=== PATIENT | female | born 1930 | race Caucasian/White ===

== ENCOUNTER 2017-01-12 15:02 | Inpatient (IN) | payer MEDICARE, BC ==
--- NOTE | 2017-01-12 16:29 | ER Document Report ---
ED Fall - General Chief Complaint: Fall Injury Stated Complaint: LEG PAIN FALL Time Seen by Provider: 01/12/17 15:58 Mode of Arrival: Medic Information source: Patient, Emergency Med Personnel Notes: This is an 86-year-old female with a history of coronary artery disease (stents in the past, no HI), hypertension, dyslipidemia who is brought in by EMS with left hip pain after fall this morning. Patient states she was up on a stool trying to fix a light when she tripped over and fell. She denies hitting her head. She denies any pain around the head area. She denies loss of consciousness. She denies any abdominal pain or back pain. She does have bruises to the left upper arm and left hip. Medicines: Amlodipine 10 mg daily Metoprolol 50 mg twice a day Plavix 75 milligrams daily Isosorbide ER 60 mg twice a day Simvastatin 20 mg daily No known drug allergies [facility] physician: Sayra Belcher (new physician in office) TRAVEL OUTSIDE OF THE [place] IN LAST 30 DAYS: No - HPI Occurred: This morning Where: Home Context: Lost balance Associated symptoms: Difficulty walking. denies: Lost consciousness, Dazed/ confused, Seizure, Difficulty breathing, Became dizzy/fainted Location of injury/pain: Hip Quality of pain: Dull Severity: Moderate Pain Level: 3 - Related data Allergies/Adverse Reactions: No Known Allergies Allergy (Verified 01/12/17 15:23) Past Medical History - General Information source: Patient, Relative - Social History Smoking Status: Never Smoker Cigarette use (# per day): No Chew tobacco use (# tins/day): No Frequency of alcohol use: None Drug Abuse: None Lives with: Spouse/Significant other Family History: Reviewed & Not Pertinent Patient has suicidal ideation: No Patient has homicidal ideation: No - Past Medical History Cardiac Medical History: Reports: Hx Coronary Artery Disease, Hx Heart Attack, Hx Hypercholesterolemia, Hx Hypertension Pulmonary Medical History: Denies: Hx Asthma, Hx Tuberculosis Neurological Medical History: Denies: Hx Cerebrovascular Accident, Hx Seizures GI Medical History: Denies: Hx Hepatitis, Hx Hiatal Hernia, Hx Ulcer Psychiatric Medical History: Denies: Hx Depression Infectious Medical History: Denies: Hx Hepatitis Past Surgical History: Reports: Hx Cardiac Surgery - 5 stents, 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 Denies: Hx Mastectomy, Hx Open Heart Surgery - STENTS PLACED - Immunizations Hx Diphtheria, Pertussis, Tetanus Vaccination: Yes Hx Pneumococcal Vaccination: 06/03/13 Review of Systems - Review of Systems Constitutional: denies: Chills, Fever EENT: No symptoms reported Cardiovascular: No symptoms reported Respiratory: No symptoms reported Gastrointestinal: No symptoms reported Genitourinary: No symptoms reported Female Genitourinary: No symptoms reported Musculoskeletal: See HPI Skin: No symptoms reported Hematologic/Lymphatic: No symptoms reported Neurological/Psychological: No symptoms reported Physical Exam - Vital signs Vitals: Pulse Ox 95 01/12/17 15:03 Notes: Physical exam: GENERAL: 86-year-old female, alert and oriented 3, no acute distress laying flat. She does have pain with attempted movement of the left hip. HEAD: Atraumatic, normocephalic. Patient has no tenderness about the head. Cervical spine: Nontender to palpation EYES: Pupils equal round and reactive to light, extraocular movements intact, sclera anicteric, conjunctiva are normal. ENT: TMs normal, nares patent, oropharynx clear without exudates. Moist mucous membranes. NECK: Normal range of motion, supple without lymphadenopathy or JVD. LUNGS: Breath sounds clear to auscultation bilaterally and equal. No wheezes rales or rhonchi. HEART: Regular rate and rhythm without murmurs, rubs or gallops. ABDOMEN: Soft, normoactive bowel sounds. No tenderness to palpation. No guarding, no rebound. No masses appreciated. EXTREMITIES: Normal range of motion of the right hip. 2+ pulses on the right. Good cap refill. Left lower extremity is shortened compared to the right. Limited range of motion due to pain. Distal pulses in the foot are 2+. Patient is moving the toes and has good cap refill. Patient does have a contusion over the left hip area laterally. Right upper extremity: There is a small pressure contusion over the olecranon. His full range of motion at the elbow and shoulder without pain. Left upper extremity has a contusion over the proximal humerus laterally. This full range of motion of the left shoulder and left elbow. NEUROLOGICAL: Cranial nerves II through XII grossly intact. Normal speech, normal gait. PSYCH: Normal mood, normal affect. SKIN: Warm, Dry, normal turgor, no rashes or lesions noted. Course - Re-evaluation Re-evalutation: 01/12/17 23:47 Note: I discussed case with Dr. Javier who will see patient in consult. He has been a no notified that the patient has a left intertrochanteric fracture. He has requested that I contact the anesthesiologist (Dr burrows). I did contact Dr. Momin of anesthesiology and presented the case to her. She did recommend a preop echo. I discussed the case with the hospitalist (Dr. Lepe) and I did report to him the request by the anesthesiologist for a preop echo. Patient's labs are otherwise okay and she is admitted to the hospitalist service. - Vital Signs Vital signs: Temp Pulse Resp BP Pulse Ox 97.4 F 78 18 137/66 H 100 01/12/17 20:20 01/12/17 20:20 01/12/17 20:20 01/12/17 20:20 01/12/17 20:20 - Laboratory Result Diagrams: 01/12/17 16:41 01/12/17 16:41 Laboratory results interpreted by me: 01/12/17 01/12/17 01/12/17 16:11 16:41 16:41 WBC 11.6 H RBC 3.71 L Hgb 11.6 L Hct 34.8 L Seg Neutrophils % 85.9 H Lymphocytes % 9.9 L Absolute Neutrophils 10.0 H BUN 27 H Glucose 177 H Urine Glucose (UA) 50 H Urine Ascorbic Acid 40 H - Diagnostic Test Radiology reviewed: Image reviewed, Reports reviewed - Hip x-ray shows left intertrochanteric fracture - EKG Interpretation by Me Rate: Normal Rhythm: NSR - EKG shows normal sinus rhythm with a ventricular rate of 74. Patient does have a left bundle branch block which is old. No significant change from prior EKG in 02/04/2014 Critical Care Note - Critical Care Note Total time excluding time spent on procedures (mins): 60 Discharge - Discharge Clinical Impression: left hip fracture Condition: Stable Disposition: ADMITTED INPATIENT Admitting Provider: Hospitalist - Dr Lepe
[2017-01-12 16:58] LABS: ABSOLUTE LYMPHOCYTES (AUTO) 1.2 10^3/uL (0.5-4.7); ABSOLUTE MONOCYTES (AUTO) 0.5 10^3/uL (0.1-1.4); BASOPHILS % (AUTO) 0.2 % (0-2); EOSINOPHILS % (AUTO) 0.1 % (0-6); HEMATOCRIT 34.8 % (36.0-47.0); HEMOGLOBIN 11.6 g/dL (12.0-15.5); LYMPHOCYTES % (AUTO) 9.9 % (13-45); MEAN CORPUSCULAR HEMOGLOBIN 31.3 pg (27.0-33.4); MEAN CORPUSCULAR HGB CONC 33.3 g/dL (32.0-36.0); MEAN CORPUSCULAR VOLUME 94 fl (80-97); MONOCYTES % (AUTO) 3.9 % (3-13); RED BLOOD COUNT 3.71 10^6/uL (3.72-5.28); RED CELL DISTRIBUTION WIDTH 12.7 % (11.5-14.0); SEGMENTED NEUTROPHILS % (AUTO) 85.9 % (42-78); WHITE BLOOD COUNT 11.6 10^3/uL (4.0-10.5)
[2017-01-12 17:16] LABS: ALANINE AMINOTRANSFERASE 28 U/L (9-52); ALBUMIN 3.7 g/dL (3.5-5.0); ALKALINE PHOSPHATASE 70 U/L (38-126); ANION GAP 8 (5-19); ASPARTATE AMINO TRANSFERASE 28 U/L (14-36); BILIRUBIN,DIRECT 0.3 mg/dL (0.0-0.4); BILIRUBIN,TOTAL 0.8 mg/dL (0.2-1.3); BLOOD UREA NITROGEN 27 mg/dL (7-20); CALCIUM 9.4 mg/dL (8.4-10.2); CARBON DIOXIDE 30 mmol/L (22-30); CHLORIDE 99 mmol/L (98-107); CREATINE KINASE 42 U/L (30-135); CREATININE RESULT 0.84 mg/dL (0.52-1.25); GLUCOSE 177 mg/dL (75-110); SODIUM 137.2 mmol/L (137-145); TOTAL PROTEIN 7.4 g/dL (6.3-8.2)
[2017-01-12 17:19] LABS: APPEARANCE,URINE SLIGHTLY-CLOUDY; BILIRUBIN,URINE NEGATIVE (NEGATIVE); GLUCOSE, URINE 50 mg/dL (NEGATIVE); KETONES,URINE NEGATIVE (NEGATIVE); LEUKOCYTE ESTERASE,URINE NEGATIVE (NEGATIVE); NITRITE,URINE NEGATIVE (NEGATIVE); PROTEIN,URINE NEGATIVE (NEGATIVE); URINE SPECIFIC GRAVITY 1.014; UROBILINOGEN,URINE NEGATIVE mg/dL (<2.0)
[2017-01-12] MEDS ORDERED: OXYCODONE-ACETAMINOPHEN 5-325 MG TABLET PO PRN (18:09)
[2017-01-12 18:42] LABS: PROTHROMBIN TIME 13.4 SEC (11.4-15.4)
--- NOTE | 2017-01-12 19:18 | PDOC H&P ---
History of Present Illness Admission Date/PCP: 01/12/17 18:40 Patient complains of: Fall and hip pain History of Present Illness: JOSAFAT ARREGUIN is a 86 year old female, with hypertension and coronary artery disease and hyperlipidemia brought to the emergency room after a fall with subsequent hip pain on the left. Patient apparently was trying to reach and turn on a ceiling fan switch, while trying to independent living specialist the floor stool, patient felt lightheaded and fell on the floor but no reported syncope. Patient unable to get up and having pain on the left hip therefore the patient was brought to the hospital for evaluation. Patient is sedated and was given morphine and unable to give much information but able to answer very few questions. Family at bedside who provided more of the information. Prior to the fall, there was no reported discomfort, pain, shortness of breath, chills or fever. Patient is ambulatory, still able to do some housework. Patient is independent as reported. In the emergency room, x-ray of the hip shows fracture, orthopedics was consulted, anesthesia service likewise was called requesting echocardiogram , patient was referred to hospitalist for admission. 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 Denies: Amputation, Mastectomy Social History Information Source: Relative Smoking Status: Never Smoker Frequency of Alcohol Use: None Hx Recreational Drug Use: No Drugs: None Hx Prescription Drug Abuse: No Family History Family History: CVA, Other - Heart disease Parental Family History Reviewed: Yes Children Family History Reviewed: Yes Sibling(s) Family History Reviewed.: Yes Medication/Allergy Home Medications: Amlodipine Besylate 10 mg PO DAILY 12/18/12 Aspirin [Ecotrin 81 mg EC Tablet] 325 mg PO DAILY 12/18/12 Clopidogrel Bisulfate [Plavix 75 mg Tablet] 75 mg PO DAILY 12/18/12 Isosorbide Mononitrate [Isosorbide Mononitrate ER] 60 mg PO DAILY 12/18/12 Metoprolol Succinate [Toprol Xl 50 mg Tab.sr] 50 mg PO BID 12/18/12 Simvastatin 20 mg PO DAILY 12/18/12 Calcium Carbonate [Calcium] 600 mg PO DAILY 02/04/14 Multivitamin [Multi-Vitamin Daily] 1 each PO DAILY 02/04/14 Allergies/Adverse Reactions: No Known Allergies Allergy (Verified 01/12/17 15:23) Review of Systems ROS unobtainable: Due to mental status - Family at bedside provided the information as stated in the history. Physical Exam Vital Signs: Temp Pulse Resp BP Pulse Ox 97.9 F 74 20 146/70 H 98 01/12/17 15:05 01/12/17 15:05 01/12/17 18:01 01/12/17 18:01 01/12/17 18:01 General appearance: PRESENT: no acute distress, thin, other - Sedated but arousable Head exam: PRESENT: normocephalic Eye exam: PRESENT: EOMI, PERRLA - But sluggish with opacification of both lens Ear exam: PRESENT: normal external ear exam. ABSENT: drainage Mouth exam: PRESENT: moist, neck supple, tongue midline Neck exam: ABSENT: carotid bruit, JVD, lymphadenopathy, thyromegaly Respiratory exam: PRESENT: clear to auscultation win - Poor effort however. ABSENT: rales, rhonchi, wheezes Cardiovascular exam: PRESENT: RRR, +S1, +S2. ABSENT: rubs Pulses: PRESENT: normal dorsalis pedis pul Vascular exam: PRESENT: normal capillary refill GI/Abdominal exam: PRESENT: normal bowel sounds, soft. ABSENT: distended, guarding, mass, organolmegaly, rebound, tenderness Rectal exam: PRESENT: deferred Extremities exam: ABSENT: calf tenderness, clubbing, pedal edema Neurological exam: PRESENT: altered - Patient unable to follow at this time due to sedation from morphine Skin exam: PRESENT: dry, warm. ABSENT: cyanosis, rash Results Impressions: Hip X-Ray 01/12/17 00:00 IMPRESSION: Intertrochanteric fracture of the left hip. Chest X-Ray 01/12/17 15:45 IMPRESSION: COPD. NO ACUTE RADIOGRAPHIC FINDING IN THE CHEST. Head CT 01/12/17 16:14 IMPRESSION: NO ACUTE INTRACRANIAL PROCESS. NO SIGNIFICANT CHANGE FROM PRIOR STUDY. Assessment & Plan - Diagnosis (1) Hip fracture Qualifiers: Encounter type: initial encounter Fracture type: closed Laterality : left Qualified Code(s): S72.002A - Fracture of unspecified part of neck of left femur, initial encounter for closed fracture Is this a current diagnosis for this admission?: Yes (2) Hyperglycemia Is this a current diagnosis for this admission?: Yes (3) Essential hypertension Is this a current diagnosis for this admission?: Yes (4) Coronary arteriosclerosis Is this a current diagnosis for this admission?: Yes (5) Hyperlipidemia Qualifiers: Hyperlipidemia type: unspecified Qualified Code(s): E78.5 - Hyperlipidemia, unspecified Is this a current diagnosis for this admission?: Yes - Time Time Spent: 30 to 50 Minutes - Inpatient Certification Based on my medical assessment, after consideration of the patient's comorbidities, presenting symptoms, or acuity I expect that the services needed warrant INPATIENT care.: Yes I certify that my determination is in accordance with my understanding of Medicare's requirements for reasonable and necessary INPATIENT services [42 CFR 412.3e].: Yes Medical Necessity: Significant Comorbidiites Make Outpatient Treatment Too Risky , Need For IV Fluids, Need for Pain Control, Need for Surgery, Risk of Diagnosis Which Will Require Inpatient Eval/Care/Monitoring Post Hospital Care: D/C Document Management Analyst Documentation - Plan Summary Plan Summary: We are going to consult orthopedics. We are going to request for a preoperative echocardiogram as per anesthesia service reported. I am going to give IV analgesics for pain relief. I will check hemoglobin A1c, gently hydrate the patient. DVT prophylaxis with Lovenox will be placed. Further testing depends and the initial evaluation as outlined above.
[2017-01-12] MEDS ORDERED: ENOXAPARIN SODIUM INJ 30 MG/0.3 ML DISP.SYRIN SUBCUT ONE (19:30)
--- NOTE | 2017-01-12 21:39 | XCELERA REPORT ---
[address] [address] Transthoracic Echocardiogram Report Name: JOSAFAT ARREGUIN Age: 86 yrs Gender: Female : 1930 Patient Status: Emergency Patient Location: [id number] Study Date: 01/12/2017 07:30 PM Height: 60 in Weight: 85 lb BSA: 1.3 m2 Procedure: A two-dimensional transthoracic echocardiogram with color flow and Doppler was performed. Study Quality: Fair. Reason For Study: pre-operative, CAD, HTN History: pre-operative, CAD, HTN. Ordering Physician: NNAMDI GROSSMAN Performed By: Silvia Mayo Interpretation Summary The left ventricle is normal in size. There is normal left ventricular wall thickness. LV EF is 65% Left ventricular systolic function is normal. Doppler measurements suggest impaired left ventricular relaxation, which is associated with grade I/IV or mild diastolic dysfunction The left ventricular wall motion is normal. There is no thrombus. The right ventricle is normal in size and function. The left atrial size is normal. There is no evidence of mitral valve prolapse. There is no vegetation seen on the mitral valve. There is no mitral valve stenosis. There is a mild amount of mitral regurgitation The aortic valve is mildly calcified There is no aortic valve stenosis There is no LVOT obstruction. No aortic regurgitation is present. There is no tricuspid stenosis. There is a mild amount of tricuspid regurgitation There is mild pulmonary hypertension by echo RVSP is 39 to 44 mm of Hg , with RA mean of 5 to 10. There is no pericardial effusion. MMode/2D Measurements \T\ Calculations RVDd: 1.8 cm LVIDd: 4.1 cm FS: 43.0 % Ao root diam: 2.1 cm IVSd: 0.97 cm LVIDs: 2.3 cm EDV(Teich): 74.0 ml LVPWd: 0.89 cm ESV(Teich): 18.8 ml Ao root area: 3.5 cm2 EF(Teich): 74.5 % LA dimension: 2.9 cm Doppler Measurements \T\ Calculations MV E max meena: MV P1/2t max meena: Ao V2 max: LV V1 max P.3 cm/sec 91.8 cm/sec 135.5 cm/sec 6.3 mmHg MV A max meena: MV P1/2t: 68.8 msec Ao max PG: LV V1 max: 123.9 cm/sec 7.3 mmHg 125.9 cm/sec MV E/A: 0.74 MVA(P1/2t): 3.2 cm2 MV dec slope: 390.8 cm/sec2 MV dec time: 0.22 sec PA V2 max: TR max meena: 76.0 cm/sec 293.2 cm/sec PA max P.3 mmHgTR max P.4 mmHg Left Ventricle The left ventricle is normal in size. There is normal left ventricular wall thickness. LV EF is 65%. Left ventricular systolic function is normal. Doppler measurements suggest impaired left ventricular relaxation, which is associated with grade I/IV or mild diastolic dysfunction. The left ventricular wall motion is normal. There is no thrombus. There is no ventricular septal defect visualized. Right Ventricle The right ventricle is normal in size and function. Atria The right atrium is normal. The left atrial size is normal. The interatrial septum is intact with no evidence for an atrial septal defect. Mitral Valve There is moderate mitral annular calcification. There is no evidence of mitral valve prolapse. There is no vegetation seen on the mitral valve. There is no mitral valve stenosis. There is a mild amount of mitral regurgitation. Aortic Valve The aortic valve is trileaflet. The aortic valve opens well. The aortic valve is mildly calcified. There is no aortic valvular vegetation. There is no aortic valve stenosis. There is no LVOT obstruction. No aortic regurgitation is present. Tricuspid Valve There is no tricuspid stenosis. There is a mild amount of tricuspid regurgitation. There is mild pulmonary hypertension by echo. RVSP is 39 to 44 mm of Hg , with RA mean of 5 to 10. Pulmonic Valve There is no pulmonic valvular stenosis. There is no pulmonic valvular regurgitation. Great Vessels The aortic root is normal size. Effusions There is no pericardial effusion. : NNAMDI GROSSMAN > Yessenia Pablo
[2017-01-12] MEDS: NORMAL SALINE 1000 ML 1,000 ML IV PRN (21:45)
[2017-01-12] MEDS: SIMVASTATIN 10 MG TABLET PO SCH (21:51)
[2017-01-12] MEDS: METOPROLOL SUCCINATE 50 MG TAB.SR.24H PO SCH (21:51)
[2017-01-13] MEDS: NORMAL SALINE 1000 ML 1,000 ML IV PRN (03:06)
[2017-01-13 04:58] LABS: ANION GAP 9 (5-19); BLOOD UREA NITROGEN 20 mg/dL (7-20); CALCIUM 9.6 mg/dL (8.4-10.2); CARBON DIOXIDE 28 mmol/L (22-30); CHLORIDE 102 mmol/L (98-107); CREATININE RESULT 0.66 mg/dL (0.52-1.25); GLUCOSE 125 mg/dL (75-110); POTASSIUM 4.2 mmol/L (3.6-5.0); SODIUM 138.8 mmol/L (137-145)
[2017-01-13] MEDS: LANSOPRAZOLE 30 MG TAB.RAP.DR PO SCH (05:44)
[2017-01-13] MEDS: ACETAMINOPHEN 325 MG TABLET PO PRN (06:46)
[2017-01-13] MEDS ORDERED: ENOXAPARIN SODIUM INJ 40 MG/0.4 ML DISP.SYRIN SUBCUT SCH (08:00)
[2017-01-13] MEDS ORDERED: ASPIRIN 81 MG TABLET, ENT COATED PO SCH (10:00)
[2017-01-13] MEDS ORDERED: AMLODIPINE BESYLATE 5 MG TABLET PO SCH (10:00)
[2017-01-13] MEDS ORDERED: (PENDING PHARMACY ID) (Simvastatin [Simvastatin] 20 MG) PO SCH (10:00)
[2017-01-13] MEDS ORDERED: ISOSORBIDE MONONITRATE 30 MG TAB.ER.24H PO SCH (10:00)
[2017-01-13] MEDS ORDERED: METOPROLOL SUCCINATE 50 MG TAB.SR.24H PO SCH (10:00)
[2017-01-13] MEDS ORDERED: (PENDING PHARMACY ID) (Calcium Carbonate [Calcium] 600 MG) PO SCH (10:00)
--- NOTE | 2017-01-13 11:35 | PDOC PROGRESS REPORT ---
Subjective Progress Note for:: 01/13/17 Subjective:: More awake and alert and responsive. He did report and remembered the fall prior to the fracture. Patient felt a little dizzy when trying to get up from the floor to the stool to reach for a ceiling fan/light switch. Denies chest pain or shortness of breath. No PND or orthopnea. No chills or fever. No diarrhea. No dysuria urgency or frequency. Physical Exam Vital Signs: Temp Pulse Resp BP Pulse Ox 98 F 75 12 145/70 H 98 01/13/17 09:34 01/13/17 09:34 01/13/17 09:34 01/13/17 09:34 01/13/17 09:34 Intake & Output 01/12/17 01/13/17 01/14/17 06:59 06:59 06:59 Intake Total 1320 Output Total 1270 Balance 50 Weight 37.3 kg General appearance: PRESENT: no acute distress, cooperative Head exam: PRESENT: normocephalic Eye exam: PRESENT: EOMI Mouth exam: PRESENT: moist, neck supple Respiratory exam: PRESENT: clear to auscultation win. ABSENT: rhonchi, wheezes Cardiovascular exam: PRESENT: RRR. ABSENT: gallop GI/Abdominal exam: PRESENT: soft. ABSENT: distended, tenderness Extremities exam: PRESENT: pedal edema - Mild edema pretibial Neurological exam: PRESENT: alert, awake, oriented to situation Skin exam: PRESENT: dry, warm. ABSENT: cyanosis Results Laboratory Results: 01/13/17 04:11 01/13/17 04:11 Sodium 138.8 Potassium 4.2 Chloride 102 Carbon Dioxide 28 Anion Gap 9 BUN 20 Creatinine 0.66 Est GFR ( Amer) > 60 Est GFR (Non-Af Amer) > 60 Glucose 125 H Calcium 9.6 Impressions: Hip X-Ray 01/12/17 00:00 IMPRESSION: Intertrochanteric fracture of the left hip. Chest X-Ray 01/12/17 15:45 IMPRESSION: COPD. NO ACUTE RADIOGRAPHIC FINDING IN THE CHEST. Head CT 01/12/17 16:14 IMPRESSION: NO ACUTE INTRACRANIAL PROCESS. NO SIGNIFICANT CHANGE FROM PRIOR STUDY. Assessment & Plan - Diagnosis (1) Hip fracture Qualifiers: Encounter type: initial encounter Fracture type: closed Laterality : left Qualified Code(s): S72.002A - Fracture of unspecified part of neck of left femur, initial encounter for closed fracture Is this a current diagnosis for this admission?: Yes (2) Hyperglycemia Is this a current diagnosis for this admission?: Yes (3) Essential hypertension Is this a current diagnosis for this admission?: Yes (4) Coronary arteriosclerosis Is this a current diagnosis for this admission?: Yes (5) Hyperlipidemia Qualifiers: Hyperlipidemia type: unspecified Qualified Code(s): E78.5 - Hyperlipidemia, unspecified Is this a current diagnosis for this admission?: Yes - Time Time Spent with patient: 15-24 minutes - Plan Summary Plan Summary: Continue current medications and supportive care. Awaiting hip surgery. Plan for subacute rehabilitation post surgery. 2-D echocardiogram showed normal ejection fraction with no significant valvular defect.
[2017-01-13] MEDS ORDERED: FENTANYL CITRATE INJ/PF 100 MCG/2 ML AMPUL ONE (12:11)
[2017-01-13] MEDS ORDERED: MIDAZOLAM 2 MG/2 ML INJ ONE (12:12)
[2017-01-13] MEDS ORDERED: MORPHINE SULFATE 10 MG/ML INJ ONE (12:12)
[2017-01-13] MEDS ORDERED: IBUPROFEN INJ 800 MG/8 ML VIAL IV ONE (12:12)
[2017-01-13] MEDS ORDERED: PROPOFOL INJ 200 MG/20 ML VIAL IV ONE (12:12)
[2017-01-13] MEDS ORDERED: BUPIVACAINE HCL 0.25 % INJ/PF (2.5 MG/1 ML) 30 ML VIAL ONE (12:23)
[2017-01-13] MEDS ORDERED: CEFAZOLIN INJ 1 GM VIAL ONE (12:35)
[2017-01-13] MEDS ORDERED: BUPIVACAINE HCL 0.25 % INJ/PF (2.5 MG/1 ML) 30 ML VIAL INJ ONE ×2 (12:58)
[2017-01-13] MEDS ORDERED: DIPHENHYDRAMINE HCL 50 MG/ML VIAL IV PRN (13:04)
[2017-01-13] MEDS ORDERED: MORPHINE SULFATE 10 MG/ML INJ IV PRN (13:04)
[2017-01-13] MEDS ORDERED: MEPERIDINE HCL/PF INJ 25 MG/1 ML DISP.SYRIN IV PRN (13:04)
[2017-01-13] MEDS ORDERED: FENTANYL CITRATE INJ/PF 100 MCG/2 ML AMPUL IV PRN ×3 (13:04)
[2017-01-13] MEDS ORDERED: PROMETHAZINE HCL INJ 25 MG/1 ML VIAL IV PRN ×2 (13:04)
--- NOTE | 2017-01-13 13:04 | EKG REPORT ---
SEVERITY:- ABNORMAL ECG - SINUS RHYTHM LEFT BUNDLE BRANCH BLOCK : Confirmed by: Oscar Syed 13-Jan-2017 13:04:00
[2017-01-13] MEDS: FLUMAZENIL INJ 0.5 MG/5 ML VIAL IV ONE ×2 (13:55→14:00)
[2017-01-13] MEDS ORDERED: RINGERS SOLUTION,LACTATED 1,000 ML IV PRN (14:54)
--- NOTE | 2017-01-13 15:56 | Operative Report ---
Operative Report DATE OF SURGERY: 01/13/17 PREOPERATIVE DIAGNOSIS: Left intertrochanteric hip fracture POSTOPERATIVE DIAGNOSIS: Same OPERATION: Cephalo-medullary nailing left intertrochanteric hip fracture SURGEON: RUBEN CASTLE ANESTHESIA: LMAC TISSUE REMOVED OR ALTERED: None COMPLICATIONS: None ESTIMATED BLOOD LOSS: 50 mL INTRAOPERATIVE FINDINGS: As above PROCEDURE: Patient was seen and evaluated in the preoperative holding area. The left lower extremity was initialized and marked. Patient received 1 g Ancef IV for bacterial prophylaxis. Patient was taken back to the operative room where transferred operative table. Patient was placed under spinal anesthesia. Once adequate anesthetized he was carefully placed onto the hip positioner the nonoperative lower extremity and bilateral upper extremities were carefully padded and the peroneal nerve was padded and on the nonoperative extremity. The operative extremity was placed in a traction along with adduction and internal rotation. A surgical team debriefing was performed ensuring all instrumentation was available, the surgical procedure was discussed with possible concerns reviewed. A timeout was done identifying correct patient, procedure and extremity everyone in attendance agree with this and verbalized no concerns. Reduction maneuver with the use of the hip traction table were done and C-arm fluoroscopy was used to confirm optimal reduction of the intertrochanteric fracture. Once this was confirmed the lower extremity was prepped with chlor prep and draped in a sterile fashion. At this point a small skin incision was made proximal to the greater trochanter. The guidewire was placed onto the tip of the trochanter advanced down to the level of the lesser trochanter. AP and lateral fluoroscopy was used to confirm appropriate placement of the guidewire. The skin incision was then extended and the underlying fascia opened up carefully to the tip of the greater trochanter. The entry reamer was then used and advanced to the level of the lesser trochanter. At this point Darrel short gamma nail was opened up and placed onto the aiming arm and advanced down the shaft of the femur. AP and lateral fluoroscopy was then used to confirm appropriate placement of the nail. Of note I required using a 12 mm flexible reamer to ream the shaft for fitting of the nail. Once I did this step I was able then to place it in the appropriate position. Then turned my attention to the compression screw fixation in the femoral head. The trochars were advanced to the skin, a skin incision was made, careful dissection down to the fascia to the lateral femoral cortex was then partaken. The guidewire was then used and placed in the center center position with the tip apex distance less than 25 mm. Once this position was obtained the size of the compression screw was measured. AP and lateral fluoroscopy used to confirm appropriate placement of our guide wire. The step reamer was used to drill up through the femoral neck and head. I then carefully advanced the compression screw into position. AP and lateral fluoroscopy was done to confirm appropriate placement of the compression screw this was then locked into position proximally. The compression screw was then disengaged from its mounting device and the guidewire was removed. Lastly proceeded with locking of the nail distally. Using the aiming arm the trochars were advanced to the skin, a skin incision was made. Careful dissection done with a hemostat to the lateral cortex of the femur. I then drilled the near and far cortices. Measured the appropriate sized distal locking screw and secured it into position. At this point AP/lateral and oblique views of the proximal and distal aspect of the nail were taken confirming appropriate placement of the compression screw, distal locking screw and intramedullary nail. Once this was confirmed I proceeded with copious irrigation of the proximal and distal wounds. The deep tissues were closed with 0 Vicryl suture, subcutaneous tissues were closed with 3-0 Monocryl suture. The skin was closed a running 3-0 subcuticular Monocryl suture and reinforced with Dermabond & Steri-Strips. A dressing was placed. Sponge counts, instrument counts and needle counts were correct. Patient was then transferred from the operating room table to the operating room stretcher. The was no intraoperative complications patient tolerated procedure well was stable to PACU. Implants used: [place] 11 x 180 mm 130 Short Gamma Nail with a 95 mm compression screw Postoperative plan: Patient will begin physical therapy on postop day #1 with Xarelto daily.
[2017-01-13] MEDS: METOPROLOL SUCCINATE 50 MG TAB.SR.24H PO SCH ×2 (16:55→22:10)
[2017-01-13] MEDS: ENOXAPARIN SODIUM INJ 30 MG/0.3 ML DISP.SYRIN SUBCUT SCH (16:55)
[2017-01-13] MEDS: AMLODIPINE BESYLATE 10 MG TABLET PO SCH (16:56)
[2017-01-13] MEDS: ISOSORBIDE MONONITRATE 60 MG TAB.ER.24H PO SCH (17:17)
[2017-01-13] MEDS: CALCIUM CARBONATE 500 MG TABLET PO SCH (17:18)
[2017-01-13] MEDS: CLOPIDOGREL BISULFATE 75 MG TABLET PO SCH (17:18)
[2017-01-13] MEDS: ASPIRIN 325 MG TABLET, ENT COATED PO SCH (17:18)
[2017-01-13] MEDS ORDERED: NORMAL SALINE 500 ML IV ONE (19:45)
[2017-01-13] MEDS: SIMVASTATIN 10 MG TABLET PO SCH (21:52)
[2017-01-13] MEDS: CEFAZOLIN 1 GM/D5W RTU 1 GM/50 ML RTUPB IV SCH (21:52)
[2017-01-14 04:52] LABS: ABSOLUTE LYMPHOCYTES (AUTO) 1.7 10^3/uL (0.5-4.7); ABSOLUTE MONOCYTES (AUTO) 0.7 10^3/uL (0.1-1.4); ABSOLUTE NEUT (AUTO) 8.7 10^3/uL (1.7-8.2); BASOPHILS % (AUTO) 0.2 % (0-2); EOSINOPHILS % (AUTO) 0.2 % (0-6); HEMATOCRIT 21.2 % (36.0-47.0); LYMPHOCYTES % (AUTO) 15.6 % (13-45); MEAN CORPUSCULAR HEMOGLOBIN 32.9 pg (27.0-33.4); MEAN CORPUSCULAR HGB CONC 34.8 g/dL (32.0-36.0); MEAN CORPUSCULAR VOLUME 94 fl (80-97); MONOCYTES % (AUTO) 5.9 % (3-13); RED BLOOD COUNT 2.24 10^6/uL (3.72-5.28); RED CELL DISTRIBUTION WIDTH 12.5 % (11.5-14.0); SEGMENTED NEUTROPHILS % (AUTO) 78.1 % (42-78); WHITE BLOOD COUNT 11.1 10^3/uL (4.0-10.5)
[2017-01-14 05:06] LABS: HEMOGLOBIN 7.4 g/dL (12.0-15.5)
[2017-01-14 05:16] LABS: ANION GAP 6 (5-19); BLOOD UREA NITROGEN 25 mg/dL (7-20); CARBON DIOXIDE 25 mmol/L (22-30); CHLORIDE 102 mmol/L (98-107); CREATININE RESULT 0.83 mg/dL (0.52-1.25); GLUCOSE 150 mg/dL (75-110); POTASSIUM 3.8 mmol/L (3.6-5.0)
[2017-01-14] MEDS: CEFAZOLIN 1 GM/D5W RTU 1 GM/50 ML RTUPB IV SCH (06:06)
[2017-01-14] MEDS: LANSOPRAZOLE 30 MG TAB.RAP.DR PO SCH (06:06)
[2017-01-14] MEDS: ACETAMINOPHEN 325 MG TABLET PO PRN ×2 (06:41→18:29)
[2017-01-14] MEDS: ENOXAPARIN SODIUM INJ 30 MG/0.3 ML DISP.SYRIN SUBCUT SCH (08:17)
[2017-01-14] MEDS: ONDANSETRON HCL INJ/PF 4 MG/2 ML SDV IV PRN ×2 (08:17→12:29)
[2017-01-14] MEDS: CALCIUM CARBONATE 500 MG TABLET PO SCH (10:13)
[2017-01-14] MEDS: METOPROLOL SUCCINATE 50 MG TAB.SR.24H PO SCH ×2 (10:13→21:55)
[2017-01-14] MEDS: ISOSORBIDE MONONITRATE 60 MG TAB.ER.24H PO SCH (10:13)
[2017-01-14] MEDS: CLOPIDOGREL BISULFATE 75 MG TABLET PO SCH (10:13)
[2017-01-14] MEDS: ASPIRIN 325 MG TABLET, ENT COATED PO SCH (10:14)
[2017-01-14] MEDS ORDERED: TRAMADOL HCL 50 MG TABLET PO PRN (11:04)
[2017-01-14] MEDS ORDERED: ISOSORBIDE MONONITRATE 60 MG TAB.ER.24H PO SCH (11:06)
--- NOTE | 2017-01-14 11:10 | PDOC PROGRESS REPORT ---
Subjective Progress Note for:: 01/14/17 Subjective:: Patient status post surgery day #1. Patient reportedly developed anemia and is being transfused 2 units of packed RBC. Had postoperative pain given oxycodone and patient's mental status declined after the medication. Also noted with hypotension and decrease in urine output. Saline boluses were given. Patient denies any chest pain or shortness of breath. Patient is more awake and responsive now. Physical Exam Vital Signs: Temp Pulse Resp BP Pulse Ox 98.1 F 104 H 13 107/75 93 01/14/17 09:54 01/14/17 09:54 01/14/17 09:54 01/14/17 09:54 01/14/17 09:54 Intake & Output 01/13/17 01/14/17 01/15/17 06:59 06:59 06:59 Intake Total 1320 3180 0 Output Total 1270 1985 Balance 50 1195 0 Weight 37.3 kg 45.8 kg General appearance: PRESENT: no acute distress, cooperative, thin Head exam: PRESENT: normocephalic Eye exam: PRESENT: EOMI Mouth exam: PRESENT: moist, neck supple Neck exam: ABSENT: JVD Respiratory exam: PRESENT: clear to auscultation win Cardiovascular exam: PRESENT: RRR GI/Abdominal exam: PRESENT: hypoactive bowel sounds, soft. ABSENT: distended, tenderness Extremities exam: PRESENT: other - Trace lower extremity edema Neurological exam: PRESENT: alert, awake, oriented to situation Skin exam: PRESENT: dry, warm. ABSENT: cyanosis Results Laboratory Results: 01/14/17 04:37 01/14/17 04:37 01/14/17 01/14/17 01/14/17 04:37 04:37 06:00 WBC 11.1 H RBC 2.24 L Hgb 7.4 L D Hct 21.2 L MCV 94 MCH 32.9 MCHC 34.8 RDW 12.5 Plt Count 144 L Seg Neutrophils % 78.1 H Lymphocytes % 15.6 Monocytes % 5.9 Eosinophils % 0.2 Basophils % 0.2 Absolute Neutrophils 8.7 H Absolute Lymphocytes 1.7 Absolute Monocytes 0.7 Absolute Eosinophils 0.0 Absolute Basophils 0.0 Sodium 133.0 L Potassium 3.8 Chloride 102 Carbon Dioxide 25 Anion Gap 6 BUN 25 H Creatinine 0.83 Est GFR ( Amer) > 60 Est GFR (Non-Af Amer) > 60 Glucose 150 H Calcium 8.0 L Blood Type O POSITIVE Antibody Screen NEGATIVE Impressions: Chest X-Ray 01/12/17 15:45 IMPRESSION: COPD. NO ACUTE RADIOGRAPHIC FINDING IN THE CHEST. Head CT 01/12/17 16:14 IMPRESSION: NO ACUTE INTRACRANIAL PROCESS. NO SIGNIFICANT CHANGE FROM PRIOR STUDY. Fluoroscopy 01/13/17 12:30 IMPRESSION: Please see combined report for performance of procedure and radiologic supervision and interpretation. Hip X-Ray 01/13/17 12:30 IMPRESSION: IMAGE(S) OBTAINED DURING PROCEDURE. Assessment & Plan - Diagnosis (1) Hip fracture Qualifiers: Encounter type: initial encounter Fracture type: closed Laterality : left Qualified Code(s): S72.002A - Fracture of unspecified part of neck of left femur, initial encounter for closed fracture Is this a current diagnosis for this admission?: Yes (2) Hyperglycemia Is this a current diagnosis for this admission?: Yes (3) Essential hypertension Is this a current diagnosis for this admission?: Yes (4) Coronary arteriosclerosis Is this a current diagnosis for this admission?: Yes (5) Hyperlipidemia Qualifiers: Hyperlipidemia type: unspecified Qualified Code(s): E78.5 - Hyperlipidemia, unspecified Is this a current diagnosis for this admission?: Yes - Time Time Spent with patient: 25-34 minutes - Plan Summary Plan Summary: Recheck hemoglobin and hematocrit. Hold Norvasc, continue metoprolol, decrease Imdur dose. Monitor urine output. Continue gentle IV fluids. Continue supportive care.
[2017-01-14] MEDS: AMLODIPINE BESYLATE 10 MG TABLET PO SCH (11:51)
[2017-01-14] MEDS ORDERED: NORMAL SALINE 500 ML IV ONE (18:15)
[2017-01-14] MEDS: SIMVASTATIN 10 MG TABLET PO SCH (21:54)
[2017-01-15 05:26] LABS: HEMATOCRIT 30.9 % (36.0-47.0); HGB HCT DIFFERENCE 1.2; MEAN CORPUSCULAR HEMOGLOBIN 29.1 pg (27.0-33.4); MEAN CORPUSCULAR HGB CONC 34.7 g/dL (32.0-36.0); RED BLOOD COUNT 3.69 10^6/uL (3.72-5.28); RED CELL DISTRIBUTION WIDTH 19.9 % (11.5-14.0)
[2017-01-15 05:42] LABS: HEMOGLOBIN 10.7 g/dL (12.0-15.5)
[2017-01-15 05:43] LABS: ANION GAP 8 (5-19); BLOOD UREA NITROGEN 32 mg/dL (7-20); CARBON DIOXIDE 21 mmol/L (22-30); CHLORIDE 99 mmol/L (98-107); CREATININE RESULT 0.75 mg/dL (0.52-1.25); GLUCOSE 169 mg/dL (75-110); MAGNESIUM 1.9 mg/dL (1.6-2.3); MEAN CORPUSCULAR VOLUME 84 fl (80-97); POTASSIUM 4.4 mmol/L (3.6-5.0); SODIUM 127.9 mmol/L (137-145)
[2017-01-15 05:46] LABS: BAND NEUTROPHILS % (MANUAL) 2 % (3-5); BASOPHILS % (MANUAL) 0 % (0-2); EOSINOPHILS % (MANUAL) 0 % (0-6); LYMPHOCYTES % (MANUAL) 7 % (13-45); TOTAL CELLS COUNTED 100
[2017-01-15 05:51] LABS: BURR CELLS SLIGHT; POLYCHROMASIA SLIGHT; TOXIC GRANULATION 1+; TOXIC VACUOLATION PRESENT
[2017-01-15 05:52] LABS: ANISOCYTOSIS 2+; POIKILOCYTOSIS SLIGHT
[2017-01-15] MEDS: LANSOPRAZOLE 30 MG TAB.RAP.DR PO SCH (05:56)
[2017-01-15] MEDS ORDERED: FUROSEMIDE INJ/PF 40 MG/4 ML SDV IV ONE ×2 (06:00→08:48)
[2017-01-15 06:01] LABS: ARTERIAL BLOOD BASE EXCESS -2.2 mmol/L; ARTERIAL BLOOD O2 SATURATION 90.8 % (94-98)
[2017-01-15] MEDS ORDERED: NORMAL SALINE 500 ML IV ONE (06:11)
[2017-01-15 06:34] LABS: CREATINE KINASE MB 65.6 ng/mL (<4.55)
[2017-01-15] MEDS ORDERED: HEPARIN SOD (PORCINE) 1,000 UNIT/ML 10 ML VIAL IV ONE (06:46)
[2017-01-15] MEDS ORDERED: HEPARIN SODIUM,PORCINE/D5W 250 ML IV PRN (06:46)
[2017-01-15] MEDS ORDERED: HEPARIN SOD (PORCINE) 1,000 UNIT/ML 10 ML VIAL IV PRN (06:46)
[2017-01-15 06:52] LABS: TROPONIN I 39.8 ng/mL
[2017-01-15 07:23] LABS: ABSOLUTE BASOPHILS # (AUTO) 0.1 10^3/uL (0.0-0.2); ABSOLUTE LYMPHOCYTES (AUTO) 0.9 10^3/uL (0.5-4.7); ABSOLUTE MONOCYTES (AUTO) 0.9 10^3/uL (0.1-1.4); ABSOLUTE NEUT (AUTO) 15.3 10^3/uL (1.7-8.2); BASOPHILS % (AUTO) 0.5 % (0-2); EOSINOPHILS % (AUTO) 0.1 % (0-6); HEMATOCRIT 33.4 % (36.0-47.0); HEMOGLOBIN 11.5 g/dL (12.0-15.5); HGB HCT DIFFERENCE 1.1; LYMPHOCYTES % (AUTO) 5.3 % (13-45); MEAN CORPUSCULAR HGB CONC 34.4 g/dL (32.0-36.0); MEAN CORPUSCULAR VOLUME 84 fl (80-97); MONOCYTES % (AUTO) 5.5 % (3-13); RED BLOOD COUNT 3.98 10^6/uL (3.72-5.28); RED CELL DISTRIBUTION WIDTH 20.2 % (11.5-14.0); SEGMENTED NEUTROPHILS % (AUTO) 88.6 % (42-78); WHITE BLOOD COUNT 17.3 10^3/uL (4.0-10.5)
[2017-01-15 07:26] LABS: PROTHROMBIN TIME 11.5 SEC (11.4-15.4)
[2017-01-15 07:57] LABS: ANISOCYTOSIS 2+; OVALOCYTES SLIGHT; PARTIAL THROMBOPLASTIN TIME > 235.0 SEC (23.5-35.8); POIKILOCYTOSIS SLIGHT
--- NOTE | 2017-01-15 08:35 | EKG REPORT ---
SEVERITY:- ABNORMAL ECG - SINUS RHYTHM LEFT BUNDLE BRANCH BLOCK : Confirmed by: Oscar Syed 15-Jan-2017 08:35:06
[2017-01-15] MEDS ORDERED: ISOSORBIDE MONONITRATE 30 MG TAB.ER.24H PO SCH (10:00)
[2017-01-15] MEDS ORDERED: PIPERACILLIN/TAZOBACTAM 3.375 GM VIAL IV SCH (10:15)
--- NOTE | 2017-01-15 11:08 | PDOC TRANSFER SUMMARY ---
General Admission Date/PCP: 01/12/17 18:09 Admission Date: 01/12/17 Transfer Date: 01/15/17 Accepting Facility: [facility] Accepting Physician: Dr. Stafford Resuscitation Status: Full Code - Transfer Diagnosis (1) Acute myocardial infarction Is this a current diagnosis for this admission?: Yes (2) Hip fracture Is this a current diagnosis for this admission?: Yes (3) Anemia due to acute blood loss Is this a current diagnosis for this admission?: YesDiagnosis Summary: From the hip fracture and surgery (4) Hyperglycemia Is this a current diagnosis for this admission?: Yes (5) Essential hypertension Is this a current diagnosis for this admission?: Yes (6) Coronary arteriosclerosis Is this a current diagnosis for this admission?: Yes (7) Hyperlipidemia Is this a current diagnosis for this admission?: Yes - Transfer Medications Home Medications: Amlodipine Besylate 10 mg PO DAILY 12/18/12 Aspirin [Ecotrin 81 mg EC Tablet] 325 mg PO DAILY 12/18/12 Clopidogrel Bisulfate [Plavix 75 mg Tablet] 75 mg PO DAILY 12/18/12 Isosorbide Mononitrate [Isosorbide Mononitrate ER] 60 mg PO DAILY 12/18/12 Metoprolol Succinate [Toprol Xl 50 mg Tab.sr] 50 mg PO BID 12/18/12 Simvastatin 20 mg PO DAILY 12/18/12 Calcium Carbonate [Calcium] 600 mg PO DAILY 02/04/14 Multivitamin [Multi-Vitamin Daily] 1 each PO DAILY 02/04/14 Transfer Medications: Current Medications Acetaminophen (Tylenol 325 Mg Tablet) 650 mg PO Q4HP PRN PRN Reason: fever Stop: 02/11/17 18:08 Last Admin: 01/14/17 18:29 Dose: 650 mg Amlodipine Besylate (Norvasc 10 Mg Tablet) 10 mg PO DAILY KEILA Stop: 02/12/17 09:59 Last Admin: 01/14/17 11:51 Dose: Not Given Aspirin (Ecotrin 325 Mg Ec Tablet) 325 mg PO DAILY KEILA Stop: 02/12/17 09:59 Last Admin: 01/14/17 10:14 Dose: 325 mg Calcium Carbonate (Os-George 500 Mg Tablet (Oyster-Shell)) 500 mg PO DAILY KEILA Stop: 02/12/17 09:59 Last Admin: 01/14/17 10:13 Dose: 500 mg Clopidogrel Bisulfate (Plavix 75 Mg Tablet) 75 mg PO DAILY [facility] Stop: 02/12/17 09:59 Last Admin: 01/14/17 10:13 Dose: 75 mg Heparin Sodium (Porcine) (Heparin Inj 1,000 Unit/Ml 10 Ml Vial) 0 - 12,000 unit IV .BOLUS PER PROTOCOL PRN; Protocol PRN Reason: RESPOND TO aPTT VALUE Stop: 02/14/17 06:45 Heparin Sodium/Dextrose (Heparin Rtu 25,000 Unit/250 Ml D5w Premix) 250 mls @ 0 mls/hr IV CONTINUOUS PRN; Protocol; Titrate PRN Reason: THIS MED IS NOT "PRN" Stop: 02/14/17 06:45 Piperacillin Sod/Tazobactam (Sod 3.375 gm/ Sodium Chloride) 100 mls @ 200 mls/ hr IV Q8 [facility] Stop: 01/22/17 13:59 Isosorbide Mononitrate (Imdur 30 Mg Tablet.Er) 30 mg PO DAILY [facility] Stop: 02/14/17 09:59 Lansoprazole (Prevacid 30 Mg Odt Tablet) 30 mg PO Q6AM [facility] Stop: 02/12/17 05:59 Last Admin: 01/15/17 05:56 Dose: Not Given Metoprolol Succinate (Toprol Xl 50 Mg Tab.Sr) 50 mg PO Q12 [facility] Stop: 02/11/17 21:59 Last Admin: 01/14/17 21:55 Dose: 50 mg Ondansetron HCl (Zofran Inj/Pf 4 Mg/2 Ml Sdv) 4 mg IV Q4HP PRN PRN Reason: nausea/vomiting Stop: 02/11/17 18:08 Last Admin: 01/14/17 12:29 Dose: 4 mg Simvastatin (Zocor 10 Mg Tablet) 20 mg PO QHS [facility] Stop: 02/11/17 21:59 Last Admin: 01/14/17 21:54 Dose: 20 mg Tramadol HCl (Ultram 50 Mg Tablet) 25 mg PO Q6HP PRN Stop: 01/21/17 11:03 - Allergies Allergies/Adverse Reactions: No Known Allergies Allergy (Verified 01/12/17 15:23) - Diet/Activity Discharge Diet: Cardiac Discharge Activity: Bedrest Hospital Course Hospital Course: The patient was admitted to telemetry. The patient was referred to orthopedic surgery for further evaluation and management. 2-D echocardiogram was obtained showing a normal ejection fraction. The patient eventually underwent hip arthroplasty on the left. This was complicated by postoperative hypotension and anemia, requiring IV fluid and 2 packed RBC transfusion. She was on her home medications metoprolol Norvasc and Imdur as well as antiplatelets, and her Norvasc was discontinued, Imdur dose was decreased, metoprolol was continued. No further hypotension was noted. Patient apparently developed shortness of breath the night before transfer, patient was placed on BiPAP, chest x-ray revealed increased interstitial markings and congestion. WBC increased. Patient was given intravenous antibiotic and Lasix. Troponin was obtained and it was elevated at 39. Cardiology was consulted, repeat echocardiograms shows decrease in left ventricular ejection fraction and recommended patient to be transferred for cardiac catheterization. Family agreed with the plan. She has a audio visual design engineer at [facility]. Facility was contacted, Dr. Stafford on the cardiac services responded and accepted the patient. The patient was placed on heparin drip as well as Bumex drip. When a bed was available she was eventually transferred. Physical Exam Vital Signs: Temp Pulse Resp BP Pulse Ox 97.2 F 80 26 H 117/69 94 01/15/17 07:55 01/15/17 07:55 01/15/17 09:15 01/15/17 07:55 01/15/17 09:15 Intake & Output 01/14/17 01/15/17 01/16/17 06:59 06:59 06:59 Intake Total 3180 2605 Output Total 1985 500 Balance 1195 2105 Weight 45.8 kg 46.9 kg General appearance: PRESENT: mild distress, other - On BiPAP Head exam: PRESENT: normocephalic Eye exam: PRESENT: conjunctiva pale, EOMI Mouth exam: PRESENT: moist, neck supple Neck exam: ABSENT: JVD Respiratory exam: PRESENT: crackles - Bilateral. ABSENT: wheezes Cardiovascular exam: PRESENT: RRR. ABSENT: gallop GI/Abdominal exam: PRESENT: hypoactive bowel sounds, soft. ABSENT: distended, tenderness Extremities exam: ABSENT: pedal edema Neurological exam: PRESENT: alert, awake, other - Confused Skin exam: PRESENT: dry, warm. ABSENT: cyanosis Results Laboratory Results: 01/15/17 07:00 01/15/17 04:03 01/14/17 01/15/17 01/15/17 06:00 04:03 04:03 WBC 15.0 H RBC 3.69 L Hgb 10.7 L D Hct 30.9 L MCV 84 D MCH 29.1 MCHC 34.7 RDW 19.9 H Plt Count 145 L Seg Neutrophils % Not Reportable Lymphocytes % Not Reportable Monocytes % Not Reportable Eosinophils % Not Reportable Basophils % Not Reportable Absolute Neutrophils Not Reportable Absolute Lymphocytes Not Reportable Absolute Monocytes Not Reportable Absolute Eosinophils Not Reportable Absolute Basophils Not Reportable Carbonic Acid HCO3/H2CO3 Ratio ABG pH ABG pCO2 ABG pO2 ABG HCO3 ABG O2 Saturation ABG Base Excess FiO2 Sodium 127.9 L Potassium 4.4 Chloride 99 Carbon Dioxide 21 L Anion Gap 8 BUN 32 H Creatinine 0.75 Est GFR ( Amer) > 60 Est GFR (Non-Af Amer) > 60 Glucose 169 H Calcium 8.0 L Phosphorus 3.0 Magnesium 1.9 Blood Type O POSITIVE Antibody Screen NEGATIVE 01/15/17 01/15/17 05:40 07:00 WBC 17.3 H RBC 3.98 Hgb 11.5 L Hct 33.4 L MCV 84 MCH 29.0 MCHC 34.4 RDW 20.2 H Plt Count 124 L Seg Neutrophils % 88.6 H Lymphocytes % 5.3 L Monocytes % 5.5 Eosinophils % 0.1 Basophils % 0.5 Absolute Neutrophils 15.3 H Absolute Lymphocytes 0.9 Absolute Monocytes 0.9 Absolute Eosinophils 0.0 Absolute Basophils 0.1 Carbonic Acid 0.81 L HCO3/H2CO3 Ratio 24:1 ABG pH 7.49 H ABG pCO2 26.8 L ABG pO2 53.5 L ABG HCO3 19.9 L ABG O2 Saturation 90.8 L ABG Base Excess -2.2 FiO2 100% Sodium Potassium Chloride Carbon Dioxide Anion Gap BUN Creatinine Est GFR ( Amer) Est GFR (Non-Af Amer) Glucose Calcium Phosphorus Magnesium Blood Type Antibody Screen 01/15/17 01/15/17 05:57 05:57 Creatine Kinase 1287 H CK-MB (CK-2) 65.60 H Troponin I 39.800 Impressions: Head CT 01/12/17 16:14 IMPRESSION: NO ACUTE INTRACRANIAL PROCESS. NO SIGNIFICANT CHANGE FROM PRIOR STUDY. Fluoroscopy 01/13/17 12:30 IMPRESSION: Please see combined report for performance of procedure and radiologic supervision and interpretation. Hip X-Ray 01/13/17 12:30 IMPRESSION: IMAGE(S) OBTAINED DURING PROCEDURE. Chest X-Ray 01/15/17 05:22 IMPRESSION: New/worsened moderate mixed interstitial and airspace opacities and small-moderate likely bilateral pleural effusions. Differential diagnosis includes pulmonary edema and pneumonia. Plan Discharge Plan: Transferred to [facility] for further evaluation and management. Time Spent: Less than 30 Minutes
[2017-01-15] MEDS: CALCIUM CARBONATE 500 MG TABLET PO SCH (11:23)
[2017-01-15] MEDS: METOPROLOL SUCCINATE 50 MG TAB.SR.24H PO SCH (11:23)
[2017-01-15] MEDS: ASPIRIN 325 MG TABLET, ENT COATED PO SCH (11:23)
[2017-01-15] MEDS: CLOPIDOGREL BISULFATE 75 MG TABLET PO SCH (11:23)
[2017-01-15] MEDS ORDERED: [UNRECOGNIZED DRUG - OTHER] IV SCH ×3 (12:00)
[2017-01-15] MEDS ORDERED: BUMETANIDE IV SCH ×3 (12:00)
[2017-01-15 13:08] LABS: CREATINE KINASE MB 71.4 ng/mL (<4.55)
[2017-01-15 13:31] VITALS: BP 126/79
[2017-01-15 13:32] LABS: TROPONIN I 80.8 ng/mL
[2017-01-15] MEDS ORDERED: PIPERACILLIN SODIUM/TAZOBACTAM 3.375 GM in NORMAL SALINE 100 ML IV SCH (14:00)
--- NOTE | 2017-01-15 14:45 | XCELERA REPORT ---
[address] [address] Transthoracic Echocardiogram Report Name: JOSAFAT ARREGUIN Age: 86 yrs Gender: Female : 1930 Patient Status: Inpatient Patient Location: [id number]\304\[id number]\B Study Date: 01/15/2017 10:04 AM Height: 60 in Weight: 103 lb BSA: 1.4 m2 Procedure: Limited 2 D and color flow echo. Study Quality: Fair. Reason For Study: NSTEMI /CHF History: NSTEMI /CHF. Ordering Physician: YESSENIA MILLER Performed By: Madison Ken Interpretation Summary Suspect culprit lesion in Proximal LAD after the first septal programmer analyst health it. The left ventricle is normal in size. There is normal left ventricular wall thickness. LV EF is 20% to 25% Left ventricular systolic function is severely reduced. All LV apical and Mid segments are severely hypokinetic to Akinetic.All basal ssegments nd the LV, aand posterior wall are moderately hypokinetic.No Thrombus There is no evidence of mitral valve prolapse. There is no mitral valve stenosis. There is a mild to moderate amount of mitral regurgitation There is no tricuspid stenosis. There is a moderate amount of tricuspid regurgitation There is moderate pulmonary hypertension by echo RVSP is 51 mm of Hg , with RA mean of 10. MMode/2D Measurements \T\ Calculations RVDd: 1.7 cm LVIDd: 4.3 cm FS: 15.0 % LVLd ap4: 6.2 cm IVSd: 0.86 cm LVIDs: 3.6 cm EDV(Teich): 81.8 mlEDV(MOD-sp4): 49.0 ml LVPWd: 0.88 cm ESV(Teich): 55.6 mlLVLs ap4: 5.4 cm EF(Teich): 32.0 % ESV(MOD-sp4): 34.0 ml EF(MOD-sp4): 30.6 % SV(MOD-sp4): 15.0 ml Doppler Measurements \T\ Calculations TR max meena: 321.7 cm/sec TR max P.4 mmHg Left Ventricle The left ventricle is normal in size. There is normal left ventricular wall thickness. LV EF is 20% to 25%. Left ventricular systolic function is severely reduced. All LV apical and Mid segments are severely hypokinetic to Akinetic.All basal ssegments nd the LV, aand posterior wall are moderately hypokinetic.No Thrombus. Mitral Valve There is moderate mitral annular calcification. There is no evidence of mitral valve prolapse. There is no vegetation seen on the mitral valve. There is no mitral valve stenosis. There is a mild to moderate amount of mitral regurgitation. Tricuspid Valve There is no tricuspid stenosis. There is a moderate amount of tricuspid regurgitation. There is moderate pulmonary hypertension by echo. RVSP is 51 mm of Hg , with RA mean of 10. : YESSENIA MILLER > Yessenia Miller
--- NOTE | 2017-01-15 22:23 | CONSULTATION REPORT E ---
Consultation Report NAME: JOSAFAT ARREGUIN : 1930 AGE: 86Y DATE: 01/15/2017 304 B TO: JEN MILLER M.D. FROM: Requesting Physician Note that the patient was seen from 9:00 a.m. to 9:30 a.m. REASON FOR CONSULTATION: Patient with left bundle branch block pattern postoperatively with severely increased troponin-I elevation. HISTORY OF PRESENT ILLNESS: The patient is an 86-year-old female with known history of hypertension, coronary artery disease, and hyperlipidemia who after accidental fall was found to have fracture of the left hip and underwent surgery on 01/13/2017. Her preoperative EKG showed that the left ventricular function was normal. She had surgery of her left hip on 01/13/2017. Subsequently, the patient had postoperative hypotension with a blood pressure going down from 175 to 98 systolic, and the patient was given IV fluids. She also dropped her hemoglobin to 7.4, and the patient was given 2 units of packed RBC. Subsequently, the patient this morning had a troponin-I which was 39.8, and her CPK was elevated at 1287 with positive CPK-MB of 65.60. Since last night, the patient has been confused and short of breath and is on BiPAP and hence not able to give any history although she is restless and agitated and appears short of breath. There is no clear-cut way to obtain whether the patient has chest pain or not. As per the daughter, she says the patient was all right until yesterday evening when she started to develop the shortness of breath. It is clear that the patient has a [id number] MS. After discussions with Dr. Lepe, the hospitalist who has already spoken to [facility], the patient has been accepted in transfer and is awaiting the transport team. PAST MEDICAL HISTORY: There is past medical history of coronary artery disease. The patient has a past history of MS and history of 7 stents. No other history is available. Note, the patient has a past history of SVT and has had an internal loop recorder placed which did not reveal any recurrence of SVT, and this monitor has been removed. She has a history of hypertension and hyperlipidemia. There is no history of diabetes mellitus or thyroid disease. No history of COPD, asthma or sleep apnea. No history of pulmonary embolism. No history of hemoptysis. No symptoms suggestive of pneumonia. No history of TIA or CVA. No history of chronic kidney disease. No history of anxiety or depression. PAST SURGICAL HISTORY: Past surgical history is positive for multiple cardiac catheterizations with stent placement. She had an internal loop recorded placed in the past which has been removed which failed to reveal any recurrence of SVT since the patient has a past history of SVT. SOCIAL HISTORY: She does not smoke. There is no history of ETOH abuse. CORONARY ARTERY DISEASE: The patient has a family history of CVA and congestive heart failure and also myocardial infarction. ALLERGIES: The patient has no known allergies. MEDICATIONS: 1. Multivitamin 1 p.o. daily. 2. Acetaminophen 650 mg p.o. q.4 hours. 3. Normal saline 1000 mL IV continuous which has been discontinued. 4. She is on Zofran 4 mg IV q.4 hours p.r.n. 5. She is on oxycodone/acetaminophen 1 tablet p.o. q.4 hours. 6. She is on Lovenox 30 mg subcutaneously x1. 7. She is on Zocor 20 mg p.o. at bedtime. 8. She is on metoprolol 50 mg p.o. q.12 hours. 9. She is on lansoprazole 30 mg p.o. at 6:00 a.m. 10. She is on calcium 600 mg p.o. daily. 11. She is on amlodipine 10 mg p.o. daily. 12. She is on aspirin 325 mg p.o. daily. 13. She is on Plavix 75 mg p.o. daily. 14. She is on isosorbide mononitrate 60 mg p.o. daily. 15. She is on *------* 1 g IV piggyback x1. The rest of the medications have been reviewed. REVIEW OF SYSTEMS: Not much is obtainable since the patient is confused and agitated and is on BiPAP. As per the daughter, no recent symptoms of angina, no recent symptoms of SVT, no wheezing or cough except since last night the patient has become short of breath and has had some wheezing and cough and orthopnea and a little PND. No history of TIA or CVA. No history of chronic kidney disease. No history of diabetes mellitus. No history of thyroid disease. No history of heat or cold intolerance. No history of seizures, headaches, migraines. No history of anxiety or depression. No other review of systems are available. CODE STATUS: Note that the patient is a FULL CODE. The patient's spouse is her surrogate healthcare decision maker along with her daughter. PHYSICAL EXAMINATION: GENERAL: On examination, the patient is frail built and appears to be in acute distress with accessory respiratory muscles of respiration used. VITAL SIGNS: Patient is afebrile with a temperature of 97.2 degrees Fahrenheit. Her pulse is 80 beats per minute. Blood pressure is 117/69. The patient is on BiPAP with settings of 18/6 with 100% FiO2; the patient's O2 sats are 97%. HEENT: Head is atraumatic, normocephalic. Eyes: Pupils are equal, round, regular, reactive to light and accommodation. Ears: Tympanic membranes are intact. External auditory canals are clear. Throat and nares and mouth not examined due to the patient being on BiPAP. NECK: Supple. There is JVD present. There are accessory muscles of respiration used. Carotids are equal; there is no bruit. There is no goiter. Trachea is central. LUNGS: There are bibasilar rales of CHF present. CARDIOVASCULAR: S1, S2 are heard. There is no S3 gallop. There is no S4 gallop. There is systolic murmur in the left sternal border and the apex. There is no rub. ABDOMEN: Soft, nontender. There is no hepatosplenomegaly. Bowel sounds are well heard. EXTREMITIES: Femorals are diminished. Leg pulses are diminished. There is no DVT or cellulitis. There is no calf tenderness. CENTRAL NERVOUS SYSTEM: The patient moves all four extremities. PSYCHIATRIC: The patient is agitated and confused. Hence, full psychiatric examination is not available. DIAGNOSTIC TESTS: The patient's EKG shows left bundle branch block pattern which is chronic. The patient's chest x-ray suggestive of congestive heart failure. The patient's echocardiogram prior to her hip surgery showed normal LV ejection fraction with no significant valvular disease. The patient's echocardiogram limited today shows that the apical segments and mid segments of the LV are severely hypokinetic to akinetic. The basal portions of the heart show moderate hypokinesis. Overall ejection fraction is severely reduced. There is moderate amount of tricuspid regurgitation. There is moderate pulmonary hypertension. Right ventricular systolic pressure 51 mmHg. There is mild to moderate amount of mitral regurgitation. This is a new change. The patient's sodium is 127.9, potassium 4.4, chloride 99, CO2 21. The patient's BUN is 32, creatinine 0.75. GFR is greater than 60. Glucose is 169. The patient's calcium is 6.0. Phosphorus is 3.0. Magnesium is 1.9. The patient's CPK is 1287. The patient's CPK-MB is 65.60. Troponin-I is 39.80. The patient's initial PTT was greater than 235; this was supposed to be erroneous so I have asked them to repeat it so that the patient can be started on IV heparin full dose. Note the patient's initial admission hemoglobin was 11.6, but on 01/14/2017, the hemoglobin dropped to 7.4 with a hematocrit of 21.2. After 2 units of blood transfusion, today her white count is 17,300; hemoglobin is 11.5; hematocrit is 33.4; platelet count is 124,000. IMPRESSION: 1. Acute myocardial infarction postoperatively most likely [id number] myocardial infarction but cannot be sure since the patient has a chronic left bundle branch block pattern. 2. Congestive heart failure. 3. 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 4. Mild to moderate mitral regurgitation. 5. Moderate tricuspid regurgitation. 6. Moderate pulmonary hypertension. 7. Coronary artery disease with history of multiple stents and past history of remote myocardial infarction. 8. Hypertension. 9. Hyperlipidemia. RECOMMENDATIONS: Note the hospitalist has spoken to [facility], and they are asking to start the patient on a Bumex drip and also to start the patient on full-dose IV heparin. Continue all other medications. The patient will be flown to [facility]. Note the patient is a FULL CODE as mentioned earlier. The patient's and the patient's daughter are her surrogate healthcare decision makers. The patient's prognosis is very bad. All medications were reviewed. More than 50% of the time was spent in direct patient care. We will follow with you. Note 30 minutes spent on this patient. I have discussed the echocardiogram findings with the patient's daughter and the family and also with the hospitalist. A copy of this record will be sent along with the patient for her to take to [facility]. DICTATING PHYSICIAN: JEN MILLER M.D. [id number] PHY#: [id number] ID: [id number] JOB#: [id number] ACCT: [id number] cc:JEN MILLER M.D. >
[2017-01-16] MEDS ORDERED: BUMETANIDE IV SCH ×3 (12:00)
[2017-01-16] MEDS ORDERED: [UNRECOGNIZED DRUG - OTHER] IV SCH ×3 (12:00)
== END 2017-01-15 15:10 | disposition short-term general hospital (02) | DRG 480 ==
LOC: ER 15:02 → EH 18:09 → UNDOADMIN 18:40 → 4N 20:10 → 3N 01-15 08:39
PROC: 0QS736Z Reposition Left Upper Femur with Intramedullary Internal Fixation Device, Percutaneous Approach (ICD-10-PCS; principal; 2017-01-13 11:15)
PROC: 30233N1 Transfusion of Nonautologous Red Blood Cells into Peripheral Vein, Percutaneous Approach (ICD-10-PCS; 2017-01-14)
PROC: 5A09357 Assistance with Respiratory Ventilation, Less than 24 Consecutive Hours, Continuous Positive Airway Pressure (ICD-10-PCS; 2017-01-14)
DX: S72.142A Displaced intertrochanteric fracture of left femur, initial encounter for closed fracture (principal); I21.4 Non-ST elevation (NSTEMI) myocardial infarction; D62 Acute posthemorrhagic anemia; W17.89XA Other fall from one level to another, initial encounter; I25.10 Atherosclerotic heart disease of native coronary artery without angina pectoris; E78.5 Hyperlipidemia, unspecified; I10 Essential (primary) hypertension; I25.2 Old myocardial infarction; R73.9 Hyperglycemia, unspecified; I44.7 Left bundle-branch block, unspecified; I11.0 Hypertensive heart disease with heart failure; I50.9 Heart failure, unspecified; I08.1 Rheumatic disorders of both mitral and tricuspid valves; I27.2 Other secondary pulmonary hypertension; I25.5 Ischemic cardiomyopathy; Z95.5 Presence of coronary angioplasty implant and graft; Z82.3 Family history of stroke; Z82.49 Family history of ischemic heart disease and other diseases of the circulatory system; Z79.02 Long term (current) use of antithrombotics/antiplatelets; Z79.899 Other long term (current) drug therapy
CPT/HCPCS: 01230; 36415; 36430; 36600; 70450; 71010; 80048; 80053; 81001; 82550; 82553; 82803; 82962; 83036; 83735; 84100; 84484; 85025; 85610; 85730; 86850; 86900; 86901; 86920; 93005; 93010; 93306; 93321; 94660; 99291; J0690; J1650; J1741; J1940; J2250; J2270; J2405; J2704; J3010; J3490; J7030; J7040; J7050; J7120; P9016

== ENCOUNTER 2017-01-23 12:38 | Inpatient (IN) | payer MEDICARE, BC ==
[2017-01-23] MEDS ORDERED: IPRATROPIUM/ALBUTEROL 0.5-2.5 MG/3 ML AMPUL NEB ONE (12:59)
--- NOTE | 2017-01-23 12:59 | ER Document Report ---
ED General - General Stated Complaint: SHORTNESS OF BREATH Time Seen by Provider: 01/23/17 12:48 Mode of Arrival: Medic Information source: Patient Notes: 86-year-old female presents from care facility with concerns of shortness of breath. Patient was found satting 87% on room air. It is noted that patient had a recent hip injury she was supposed to have surgery but had an NV and was transferred out to [facility] where the patient had stents placed. Patient was recently discharged a few days ago TRAVEL OUTSIDE OF THE [place] IN LAST 30 DAYS: No - HPI Onset: Just prior to arrival Onset/Duration: Sudden Quality of pain: No pain Severity: Moderate Pain Level: Denies Associated symptoms: Shortness of breath Exacerbated by: Denies Relieved by: Denies Similar symptoms previously: Yes Recently seen / treated by doctor: Yes - Related Data Allergies/Adverse Reactions: No Known Allergies Allergy (Verified 01/23/17 12:40) Past Medical History - Social History Smoking Status: Never Smoker Cigarette use (# per day): No Chew tobacco use (# tins/day): No Smoking Education Provided: No Family History: CVA, Other - Heart disease - Past Medical History Cardiac Medical History: Reports: Hx Coronary Artery Disease, Hx Heart Attack, Hx Hypercholesterolemia, Hx Hypertension Pulmonary Medical History: Denies: Hx Asthma, Hx Tuberculosis Neurological Medical History: Denies: Hx Cerebrovascular Accident, Hx Seizures GI Medical History: Denies: Hx Hepatitis, Hx Hiatal Hernia, Hx Ulcer Psychiatric Medical History: Denies: Hx Depression Infectious Medical History: Denies: Hx Hepatitis Past Surgical History: Reports: Hx Cardiac Catheterization - With stent placement, Hx Cardiac Surgery - 5 stents, Hx 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 Denies: Hx Mastectomy, Hx Open Heart Surgery - STENTS PLACED - Immunizations Hx Diphtheria, Pertussis, Tetanus Vaccination: Yes Hx Pneumococcal Vaccination: 06/03/13 Review of Systems - Review of Systems Notes: PHYSICAL EXAMINATION: GENERAL: Well-appearing, well-nourished and in mild respiratory distress HEAD: Atraumatic, normocephalic. EYES: Pupils equal round and reactive to light, extraocular movements intact, conjunctiva are normal. ENT: Nares patent, oropharynx clear without exudates. Moist mucous membranes. NECK: Normal range of motion, supple without lymphadenopathy LUNGS: Decreased breath sounds all throughout HEART: Regular rate and rhythm without murmurs ABDOMEN: Soft, nontender, nondistended abdomen. No guarding, no rebound. No masses appreciated. Female : deferred Musculoskeletal: Normal range of motion, no pitting or edema. No cyanosis. NEUROLOGICAL: Cranial nerves grossly intact. Normal speech, normal gait. Normal sensory, motor exams PSYCH: Normal mood, normal affect. SKIN: Warm, Dry, normal turgor, no rashes or lesions noted. Physical Exam - Vital signs Vitals: Pulse Ox 100 01/23/17 12:48 Course - Re-evaluation Re-evalutation: 01/23/17 12:59 Septic workup pending to rule out pulmonary emboli versus pneumonia 01/23/17 14:24 wbc is elevated, pts bun creatinine ast and alt are significantly elevated in comparison to previous labs 01/23/17 14:36 spoke with [facility] they do not believe there is a cardiac involvement 01/23/17 14:[address] Regan she will admit the patient we have stopped the CTA to kidney failure - Vital Signs Vital signs: Temp Pulse Resp BP Pulse Ox 18 122/81 100 01/23/17 13:17 01/23/17 13:01 01/23/17 13:01 - Laboratory Result Diagrams: 01/23/17 13:08 01/23/17 13:08 Laboratory results interpreted by me: 01/23/17 01/23/17 01/23/17 13:08 13:08 13:08 WBC 19.5 H Hgb 10.9 L Hct 33.2 L RDW 18.5 H Seg Neuts % (Manual) 93 H Band Neutrophils % 1 L Lymphocytes % (Manual) 3 L Abs Neuts (Manual) 18.3 H Sodium 135.2 L Chloride 94 L Carbon Dioxide 33 H BUN 100 H Creatinine 1.71 H Est GFR ( Amer) 34 L Est GFR (Non-Af Amer) 28 L Glucose 147 H Total Bilirubin 2.2 H Direct Bilirubin 0.9 H AST 2406 H ALT 2622 H Alkaline Phosphatase 129 H NT-Pro-B Natriuret Pep 01331 H Albumin 2.9 L - Diagnostic Test Radiology reviewed: Image reviewed, Reports reviewed - EKG Interpretation by Me EKG shows normal: Sinus rhythm, [place], Intervals, QRS Complexes [place]/QRS: LBBB When compared to previous EKG there are: No significant change Critical Care Note - Critical Care Note Total time excluding time spent on procedures (mins): 45 Comments: minutes of critical care time spent in direct contact evaluating and reevaluating the patient, treating symptoms, reviewing labs and studies and speaking with family and consultants excluding any procedures Discharge - Discharge Clinical Impression: Hypoxemia, Do not resuscitate status Liver failure Qualifiers: Liver failure chronicity: acute Hepatic coma status: without hepatic coma Qualified Code(s): K72.00 - Acute and subacute hepatic failure without coma Kidney failure Qualifiers: Renal failure chronicity: acute Acute renal failure type: unspecified Qualified Code(s): N17.9 - Acute kidney failure, unspecified Condition: Critical Disposition: ADMITTED INPATIENT Admitting Provider: Hospitalist Unit Admitted: Telemetry
[2017-01-23 13:25] LABS: HEMATOCRIT 33.2 % (36.0-47.0); HEMOGLOBIN 10.9 g/dL (12.0-15.5); HGB HCT DIFFERENCE -0.5; MEAN CORPUSCULAR HEMOGLOBIN 29.1 pg (27.0-33.4); MEAN CORPUSCULAR HGB CONC 32.7 g/dL (32.0-36.0); RED BLOOD COUNT 3.73 10^6/uL (3.72-5.28); RED CELL DISTRIBUTION WIDTH 18.5 % (11.5-14.0); WHITE BLOOD COUNT 19.5 10^3/uL (4.0-10.5)
--- NOTE | 2017-01-23 13:33 | RADIOLOGY REPORT (SQ) ---
EXAM DESCRIPTION: CHEST SINGLE VIEW COMPLETED DATE/TIME: 01/23/2017 1:21 pm REASON FOR STUDY: sob COMPARISON: 01/15/2017 EXAM PARAMETERS: NUMBER OF VIEWS: One view. TECHNIQUE: Single frontal radiographic view of the chest acquired. RADIATION DOSE: NA LIMITATIONS: None. FINDINGS: LUNGS AND PLEURA: The previously described small bilateral pleural effusions are again terry ntified and appear essentially unchanged. There has been overall interval improvement in the associa chirag mixed interstitial and airspace opacities. MEDIASTINUM AND HILAR STRUCTURES: No masses. Contour normal. HEART AND VASCULAR STRUCTURES: The configuration of the heart and mediastinal structures is unchanged BONES: No acute findings. HARDWARE: None in the chest. OTHER: No other significant finding. IMPRESSION: Overall interval improvement as noted above. Other findings as noted above. TECHNICAL DOCUMENTATION: JOB ID: [id number]
[2017-01-23 13:42] LABS: ALBUMIN 2.9 g/dL (3.5-5.0); ALKALINE PHOSPHATASE 129 U/L (38-126); ANION GAP 8 (5-19); BILIRUBIN,DIRECT 0.9 mg/dL (0.0-0.4); BILIRUBIN,TOTAL 2.2 mg/dL (0.2-1.3); BLOOD UREA NITROGEN 100 mg/dL (7-20); CALCIUM 8.4 mg/dL (8.4-10.2); CARBON DIOXIDE 33 mmol/L (22-30); CHLORIDE 94 mmol/L (98-107); CREATINE KINASE 101 U/L (30-135); CREATININE RESULT 1.71 mg/dL (0.52-1.25); GLUCOSE 147 mg/dL (75-110); POTASSIUM 3.9 mmol/L (3.6-5.0); SODIUM 135.2 mmol/L (137-145); TOTAL PROTEIN 6.5 g/dL (6.3-8.2)
[2017-01-23 13:51] LABS: BAND NEUTROPHILS % (MANUAL) 1 % (3-5); BASOPHILS % (MANUAL) 0 % (0-2); EOSINOPHILS % (MANUAL) 0 % (0-6); LYMPHOCYTES % (MANUAL) 3 % (13-45); NUCLEATED RED BLOOD CELLS 1 /100 WBC (0); TOTAL CELLS COUNTED 100
[2017-01-23 13:54] LABS: CREATINE KINASE MB 2.52 ng/mL (<4.55)
[2017-01-23 13:59] LABS: TROPONIN I 7.87 ng/mL
[2017-01-23 14:02] LABS: ANISOCYTOSIS 2+; OVALOCYTES SLIGHT; POIKILOCYTOSIS SLIGHT
[2017-01-23 14:03] LABS: TOXIC GRANULATION 1+; TOXIC VACUOLATION PRESENT
[2017-01-23 14:05] LABS: MEAN CORPUSCULAR VOLUME 89 fl (80-97)
[2017-01-23 14:07] LABS: ALANINE AMINOTRANSFERASE 2622 U/L (9-52); ASPARTATE AMINO TRANSFERASE 2406 U/L (14-36)
[2017-01-23 15:02] LABS: PROTHROMBIN TIME 18.6 SEC (11.4-15.4)
--- NOTE | 2017-01-23 15:28 | RADIOLOGY REPORT (SQ) ---
EXAM DESCRIPTION: CT CHEST WITHOUT COMPLETED DATE/TIME: 01/23/2017 2:54 pm REASON FOR STUDY: hypoxemia COMPARISON: February 2015 TECHNIQUE: CT scan performed of the chest without intravenous contrast. Images reviewed with lung, soft tissue and bone windows. Reconstructed coronal and sagittal MPR images reviewed. All images st ored on PACS. All CT scanners at this facility use dose modulation, iterative reconstruction, and/or weight based d osing when appropriate to reduce radiation dose to as low as reasonably achievable (ALARA). [facility]: Dose Right [facility]: CareDose [facility]: Dose Right [facility]: Teradose 4D [facility]: Lua RADIATION DOSE: 4.8 mGy. LIMITATIONS: No technical limitations. FINDINGS: LUNGS AND PLEURA: Moderate size bilateral pleural effusions are identified with associated airspace consolidation in the lung bases which could represent atelectatic changes or pneumonic cons olidations. HILAR AND MEDIASTINAL STRUCTURES: No identified masses or abnormal nodes. No obvious aneurysm. HEART AND VASCULAR STRUCTURES: The heart appears enlarged. Coronary artery calcifications are identi fied. UPPER ABDOMEN: No significant findings. Limited exam. THYROID AND OTHER SOFT TISSUES: No masses. No adenopathy. BONES: No significant finding. HARDWARE: None in the chest. OTHER: No other significant findings. IMPRESSION: Moderate size bilateral pleural effusions are identified with associated airspace consol idation in the lung bases which could represent atelectatic changes or pneumonic consolidation. Othe r findings as noted above TECHNICAL DOCUMENTATION: JOB ID: [id number] Quality ID # [id number]: Final reports with documentation of one or more dose reduction techniques (e.g., Au tomated exposure control, adjustment of the mA and/or kV according to patient size, use of iterative reconstruction technique) 2010 [employer]- All Rights Reserved
[2017-01-23] MEDS ORDERED: ONDANSETRON HCL INJ/PF 4 MG/2 ML SDV IV PRN (15:43)
[2017-01-23] MEDS ORDERED: LORAZEPAM INJ 2 MG/1 ML VIAL IV PRN (15:50)
[2017-01-23] MEDS ORDERED: MORPHINE SULFATE 10 MG/ML INJ IV PRN (15:50)
--- NOTE | 2017-01-23 18:00 | PDOC H&P ---
History of Present Illness Admission Date/PCP: 01/23/17 15:43 History of Present Illness: JOSAFAT ARREGUIN is a 86 year old female With a history of recent hip fracture and repair, explained, congestive heart failure, coronary artery disease, chronic systolic congestive heart failure, hypertension, hyperlipidemia, history of SVT who presented to the emergency department with hypoxia. Patient was recently hospitalized here at [facility] from 01/12/2017- 01/15/2017, when patient was subsequently transported to [facility] due to a non-STEMI. Patient was returned to her rehab facility on Sunday. I did discuss this with Dr. May, the [facility] forest botany instructor who cared for this patient. Subsequently , patient had what family called a good day on Sunday and then began to decline and has not eaten or drank in the last 48 hours. Here in the emergency department patient is found to be in acute renal failure, acute hepatic failure , acute respiratory failure. She is referred to the hospitalist service for comfort measures. 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 Denies: Amputation, Mastectomy Social History Smoking Status: Never Smoker Frequency of Alcohol Use: None Hx Recreational Drug Use: No Drugs: None Hx Prescription Drug Abuse: No - Advance Directive Resuscitation Status: Do Not Resuscitate Surrogate healthcare decision maker:: , surrogate decision-maker Family History Family History: CVA, Other - Heart disease Parental Family History Reviewed: Yes Children Family History Reviewed: Yes Sibling(s) Family History Reviewed.: Yes Medication/Allergy Home Medications: Alendronate Sodium [Fosamax Inchweekly Inch 35 Mg Tablet] 35 mg PO Q7D Aspirin [Aspirin 81 mg Chewable Tablet] 81 mg PO DAILY 01/23/17 Atorvastatin Calcium [Lipitor 40 mg Tablet] 40 mg PO QHS 01/23/17 Bumetanide [Bumex 1 mg Tablet] 1 mg PO BID 01/23/17 Calcium Carbonate/Vitamin D3 [Calcium 600 + Vit D 400 Tablet] 1 tab PO DAILY Clopidogrel Bisulfate [Plavix 75 mg Tablet] 75 mg PO DAILY 01/23/17 Enoxaparin Sodium [Lovenox Inj 30 mg/0.3 ml Disp.syrin] 30 mg SUBCUT QAM Isosorbide Mononitrate [Imdur 60 mg Tablet.er] 60 mg PO DAILY 01/23/17 Metoprolol Tartrate [Lopressor 50 mg Tablet] 50 mg PO Q12 01/23/17 Multivitamin [Tab-A-Jayla] 1 tab PO DAILY 01/23/17 Nitroglycerin [Nitrostat 0.4 mg (1/150 Gr) Tabs 25/Bottle] 1 tab SL Q5MP PRN Polyethylene Glycol 3350 [Miralax Powder 17 gm/Packet] 1 packet PO DAILY Psyllium Husk [Fiber Therapy] 0.52 gm PO DAILY 01/23/17 Sennosides [Senna] 8.6 mg PO QPM 01/23/17 Allergies/Adverse Reactions: No Known Allergies Allergy (Verified 01/23/17 12:40) Review of Systems ROS unobtainable: Due to mental status Physical Exam Vital Signs: Temp Pulse Resp BP Pulse Ox 13 99/61 L 99 01/23/17 15:08 01/23/17 15:08 01/23/17 15:50 Intake & Output 01/22/17 01/23/17 01/24/17 06:59 06:59 06:59 Weight 39.1 kg General appearance: PRESENT: severe distress, thin, other - Acutely and chronically ill-appearing Head exam: PRESENT: atraumatic, normocephalic Eye exam: PRESENT: conjunctiva pale, PERRLA. ABSENT: conjunctival injection, EOMI, scleral icterus Ear exam: PRESENT: normal external ear exam Mouth exam: PRESENT: dry mucosa, tongue midline Neck exam: PRESENT: JVD. ABSENT: lymphadenopathy, thyromegaly, tracheal deviation Respiratory exam: PRESENT: rales - Bilateral, symmetrical, tachypnea, unlabored. ABSENT: crackles, rhonchi, stridor, wheezes Cardiovascular exam: PRESENT: gallop, irregular rhythm, +S1, +S2, systolic murmur. ABSENT: diastolic murmur, RRR, rubs Pulses: PRESENT: +1 pedal pulses bilateral Vascular exam: PRESENT: pallor GI/Abdominal exam: PRESENT: hypoactive bowel sounds, soft. ABSENT: distended, firm, guarding, hernia, mass, Floyd's sign, normal bowel sounds, organolmegaly , rebound, rigid, tenderness Rectal exam: PRESENT: deferred Extremities exam: PRESENT: full ROM. ABSENT: clubbing, pedal edema Neurological exam: PRESENT: altered, other - Unable to participate. ABSENT: motor sensory deficit Psychiatric exam: PRESENT: other - Unable to participate Skin exam: PRESENT: dry, intact, warm. ABSENT: cyanosis, rash Results Impressions: Chest X-Ray 01/23/17 12:48 IMPRESSION: Overall interval improvement as noted above. Other findings as noted above. Chest CT 01/23/17 14:46 IMPRESSION: Moderate size bilateral pleural effusions are identified with associated airspace consolidation in the lung bases which could represent atelectatic changes or pneumonic consolidation. Other findings as noted above Assessment & Plan - Diagnosis (1) Hypoxemia Is this a current diagnosis for this admission?: Yes (2) Kidney failure Qualifiers: Renal failure chronicity: acute Acute renal failure type: unspecified Qualified Code(s): N17.9 - Acute kidney failure, unspecified Is this a current diagnosis for this admission?: Yes (3) Liver failure Qualifiers: Liver failure chronicity: acute Hepatic coma status: without hepatic coma Qualified Code(s): K72.00 - Acute and subacute hepatic failure without coma (4) Acute myocardial infarction Qualifiers: Involved coronary artery: LAD coronary artery Is this a current diagnosis for this admission?: Yes (5) Anemia due to acute blood loss Is this a current diagnosis for this admission?: Yes (7) Diabetes mellitus type 2 Is this a current diagnosis for this admission?: Yes (8) Essential hypertension Is this a current diagnosis for this admission?: Yes (9) DNR (do not resuscitate) Is this a current diagnosis for this admission?: Yes - Time Time Spent: 50 to 70 Minutes Medications reviewed and adjusted accordingly: Yes Anticipated discharge: Hospice Within: within 24 hours - Inpatient Certification Based on my medical assessment, after consideration of the patient's comorbidities, presenting symptoms, or acuity I expect that the services needed warrant INPATIENT care.: Yes I certify that my determination is in accordance with my understanding of Medicare's requirements for reasonable and necessary INPATIENT services [42 CFR 412.3e].: Yes Medical Necessity: Need for Pain Control Post Hospital Care: D/C [facility] Documentation - Plan Summary Plan Summary: In light of patient's multiple co-morbid conditions as well as the severity of her disease, discussion was had with family who are all in agreement to proceed with comfort measures and if persists through the first 24 hours will plan for dc home with home hospice.
[2017-01-23 18:49] VITALS: BP 132/73
--- NOTE | 2017-01-23 19:24 | EKG REPORT ---
SEVERITY:- ABNORMAL ECG - SINUS RHYTHM ATRIAL PREMATURE COMPLEX LEFT BUNDLE BRANCH BLOCK : Confirmed by: Stan Narayanan MD 23-Jan-2017 19:23:03
--- NOTE | 2017-01-26 20:21 | PDOC DISCHARGE SUMMARY ---
General - Admit/Disc Date/PCP Admission Date/Primary Care Provider: 01/23/17 15:43 Discharge Date: 01/24/17 - Discharge Diagnosis (1) Hypoxemia Is this a current diagnosis for this admission?: Yes (2) Kidney failure Is this a current diagnosis for this admission?: Yes (4) Acute myocardial infarction Is this a current diagnosis for this admission?: Yes (5) Anemia due to acute blood loss Is this a current diagnosis for this admission?: Yes (7) Diabetes mellitus type 2 Is this a current diagnosis for this admission?: Yes (8) Essential hypertension Is this a current diagnosis for this admission?: Yes (9) DNR (do not resuscitate) Is this a current diagnosis for this admission?: Yes - Additional Information Resuscitation Status: Do Not Resuscitate Discharge Activity: Activity As Tolerated Home Medications: Alendronate Sodium [Fosamax Inchweekly Inch 35 Mg Tablet] 35 mg PO Q7D Aspirin [Aspirin 81 mg Chewable Tablet] 81 mg PO DAILY 01/23/17 Atorvastatin Calcium [Lipitor 40 mg Tablet] 40 mg PO QHS 01/23/17 Bumetanide [Bumex 1 mg Tablet] 1 mg PO BID 01/23/17 Calcium Carbonate/Vitamin D3 [Calcium 600 + Vit D 400 Tablet] 1 tab PO DAILY Clopidogrel Bisulfate [Plavix 75 mg Tablet] 75 mg PO DAILY 01/23/17 Enoxaparin Sodium [Lovenox Inj 30 mg/0.3 ml Disp.syrin] 30 mg SUBCUT QAM Isosorbide Mononitrate [Imdur 60 mg Tablet.er] 60 mg PO DAILY 01/23/17 Metoprolol Tartrate [Lopressor 50 mg Tablet] 50 mg PO Q12 01/23/17 Multivitamin [Tab-A-Jayla] 1 tab PO DAILY 01/23/17 Nitroglycerin [Nitrostat 0.4 mg (1/150 Gr) Tabs 25/Bottle] 1 tab SL Q5MP PRN Polyethylene Glycol 3350 [Miralax Powder 17 gm/Packet] 1 packet PO DAILY Psyllium Husk [Fiber Therapy] 0.52 gm PO DAILY 01/23/17 Sennosides [Senna] 8.6 mg PO QPM 01/23/17 History of Present Illness History of Present Illness: JOSAFAT ARREGUIN is a 86 year old female With a history of recent hip fracture and repair, explained, congestive heart failure, coronary artery disease, chronic systolic congestive heart failure, hypertension, hyperlipidemia, history of SVT who presented to the emergency department with hypoxia. Patient was recently hospitalized here at [facility] from 01/12/2017- 01/15/2017, when patient was subsequently transported to [facility] due to a non-STEMI. Patient was returned to her rehab facility on Sunday. I did discuss this with Dr. May, the [facility] fuller brush man who cared for this patient. Subsequently , patient had what family called a good day on Sunday and then began to decline and has not eaten or drank in the last 48 hours. Here in the emergency department patient is found to be in acute renal failure, acute hepatic failure , acute respiratory failure. She is referred to the hospitalist service for comfort measures. Hospital Course Hospital Course: Patient was admitted and placed on comfort measures. She had a brief rally and spoke with her family last evening. Today she will be transferred home to home hospice. Physical Exam Vital Signs: Temp Pulse Resp BP Pulse Ox 0 F L 0 L 0 L 132/73 H 0 L 01/24/17 10:23 01/24/17 10:23 01/24/17 10:23 01/24/17 10:01/24/17 10:23 Exam: General: Thin, frail, shallow breathing Respiratory: Irregular respirations, occasional rhonchi CV: Irregular Abdomen: Thin, soft Extremities: Thin, no cyanosis, clubbing, edema Neuro: Unresponsive Results Impressions: Chest X-Ray 01/23/17 12:48 IMPRESSION: Overall interval improvement as noted above. Other findings as noted above. Chest CT 01/23/17 14:46 IMPRESSION: Moderate size bilateral pleural effusions are identified with associated airspace consolidation in the lung bases which could represent atelectatic changes or pneumonic consolidation. Other findings as noted above Qualifiers PATEINT BEING DISCHARGED WITH ANY OF THE FOLLOWING DIAGNOSIS?: No Plan Time Spent: Less than 30 Minutes
== END 2017-01-24 13:10 | disposition hospice, home (50) | DRG 189 ==
LOC: ER 12:38 → EH 15:17 → UNDOADMIN 15:17 → EH 15:43 → 4N 17:00
PROVIDERS: ADMIT Family Medicine; ATTEND Family Medicine
DX: J96.01 Acute respiratory failure with hypoxia (principal); K72.00 Acute and subacute hepatic failure without coma; I21.4 Non-ST elevation (NSTEMI) myocardial infarction; I50.22 Chronic systolic (congestive) heart failure; N17.9 Acute kidney failure, unspecified; D62 Acute posthemorrhagic anemia; I11.0 Hypertensive heart disease with heart failure; Z51.5 Encounter for palliative care; I25.10 Atherosclerotic heart disease of native coronary artery without angina pectoris; E78.00 Pure hypercholesterolemia, unspecified; Z66 Do not resuscitate; E78.5 Hyperlipidemia, unspecified; Z98.890 Other specified postprocedural states; S72.009D Fracture of unspecified part of neck of unspecified femur, subsequent encounter for closed fracture with routine healing; X58.XXXD Exposure to other specified factors, subsequent encounter; Z95.5 Presence of coronary angioplasty implant and graft; Z79.82 Long term (current) use of aspirin; Z79.899 Other long term (current) drug therapy; Z82.49 Family history of ischemic heart disease and other diseases of the circulatory system; Z82.3 Family history of stroke
CPT/HCPCS: 36415; 71010; 71250; 80053; 80307; 81001; 82550; 82553; 83880; 84484; 85025; 85610; 87040; 87077; 87086; 87186; 93005; 93010; 94640; 99291; J2405; J7620